=== PATIENT | female | born 1995 | race Two or more races ===

== ENCOUNTER 2020-04-01 03:05 | Inpatient (IN) | payer OTHER, SELFPAY ==
[~2020-04-01] VITALS: Ht 165.1 cm; Wt 56.8 kg
[2020-04-01] MEDS ORDERED: diphenhydrAMINE 50MG/ML VIAL (J1200) As Ordered ONE (03:07)
[2020-04-01] MEDS ORDERED: HALOPERIDOL 5MG/ML VIAL (J1630 PER 1) As Ordered ONE ×2 (03:08→03:10)
[2020-04-01] MEDS ORDERED: HALOPERIDOL 5MG/ML VIAL (J1630 PER 1) IM STA (03:20)
[2020-04-01] MEDS ORDERED: diphenhydrAMINE 50MG/ML VIAL (J1200) IM STA (03:20)
[2020-04-01 03:34] LABS: HEMATOCRIT 41.3 % (36.0-47.0); HEMOGLOBIN 12.9 g/dl (12.0-15.5); MEAN CORPUSCULAR HEMOGLOBIN 25.3 pg (27.0-33.0); MEAN CORPUSCULAR HGB CONC 31.2 g/dl (32.0-36.5); PLATELET COUNT, AUTOMATED 340 10^3/uL (150-450); WHITE BLOOD COUNT 8.4 10^3/uL (4.0-10.0)
[2020-04-01] MEDS ORDERED: diphenhydrAMINE 50MG/ML VIAL (J1200) IM ONE (04:00)
[2020-04-01] MEDS ORDERED: HALOPERIDOL 5MG/ML VIAL (J1630 PER 1) IM ONE (04:00)
[2020-04-01 04:06] LABS: ALBUMIN 4.2 GM/DL (3.2-5.2); ALT/SGPT 24 U/L (12-78); BILIRUBIN,DIRECT < 0.1 MG/DL (0.0-0.2); BILIRUBIN,TOTAL 0.2 MG/DL (0.2-1.0); BLOOD UREA NITROGEN 11 MG/DL (7-18); CALCIUM LEVEL 8.3 MG/DL (8.5-10.1); CARBON DIOXIDE LEVEL 19 MEQ/L (21-32); CHLORIDE LEVEL 110 MEQ/L (98-107); ETHYL ALCOHOL (ETHANOL) 0.218 % (0.000-0.010); GLOMERULAR FILTRATION RATE > 60.0 (>60); GLUCOSE, FASTING 96 MG/DL (70-100); POTASSIUM SERUM 3.8 MEQ/L (3.5-5.1); SALICYLATE LEVEL < 1.7 MG/DL (5.0-30.0); SODIUM LEVEL 144 MEQ/L (136-145)
[2020-04-01 04:07] LABS: ACETAMINOPHEN LEVEL < 2.0 UG/ML (10.0-30.0)
[2020-04-01 04:28] LABS: CPK CREATINE PHOSPHOKINASE 342 U/L (26-192)
--- NOTE | 2020-04-01 04:30 | REPVR ---
PROCEDURE INFORMATION: Exam: CT Head Without Contrast Exam date and time: 04/01/2020 4:10 AM Age: 24 years old Clinical indication: Altered mental status/memory loss; Additional info: AMS TECHNIQUE: Imaging protocol: Computed tomography of the head without contrast. Radiation optimization: All CT scans at this facility use at least one of these dose optimization techniques: automated exposure control; mA and/or kV adjustment per patient size (includes targeted exams where dose is matched to clinical indication); or iterative reconstruction. COMPARISON: No relevant prior studies available. FINDINGS: Brain: Normal. No hemorrhage. Unremarkable white matter. No mass effect. Ventricles: Normal. No ventriculomegaly. Bones/joints: Unremarkable. No acute fracture. Sinuses: Visualized sinuses are unremarkable. No fluid levels. Mastoid air cells: Visualized mastoid air cells are well aerated. Soft tissues: Unremarkable. Other findings: The exam is degraded by patient motion artifact and suboptimal patient positioning. IMPRESSION: 1. Motion limited exam. 2. No acute intracranial abnormality. Electronically signed by: Israel Loera On 04/01/2020 04:30:09 AM
[2020-04-01 05:17] LABS: AMPHETAMINES LEVEL URINE NEGATIVE (NEGATIVE); BARBITURATES URINE NEGATIVE (NEGATIVE); BENZODIAZEPINES URINE NEGATIVE (NEGATIVE); CANNABINOIDS URINE POSITIVE (NEGATIVE); COCAINE METABOLITE URINE NEGATIVE (NEGATIVE); METHADONE URINE NEGATIVE (NEGATIVE); OPIATES URINE NEGATIVE (NEGATIVE); PHENCYCLIDINE URINE NEGATIVE (NEGATIVE)
[2020-04-01] MEDS ORDERED: METAL LOCK LOOP XX ONE (05:54)
[2020-04-01 16:49] LABS: ETHYL ALCOHOL (ETHANOL) < 0.003 % (0.000-0.010)
[2020-04-01 16:51] LABS: HCG, SERUM QUALITATIVE NEGATIVE (NEGATIVE)
--- NOTE | 2020-04-01 19:21 | ECGEPIP ---
[facility] - ED Test Date: 2020-04-01 Pat Name: ARMANDO GIFFORD Department: Room: - Gender: Female Life Manager: ADOLPH : 1995 Requested By: BUNNY Prasad Order Number: [id number] Reading MD: Randal Dimas Measurements Intervals Gove Rate: 75 P: 31 CA: 141 QRS: 66 QRSD: 78 T: 66 QT: 396 QTc: 443 Interpretive Statements SINUS RHYTHM WITH SINUS ARRHYTHMIA BENIGN EARLY REPOLARIZATION NO PRIORS FOR COMPARISON Electronically Signed on 04-01-2020 19:20:41 EDT by Randal Dimas
[2020-04-02] MEDS: FOLIC ACID 1 MG TAB PO SCH ×2 (09:00→18:32)
[2020-04-02] MEDS: MULTIVITAMINS/MINERALS THERAP 1 TAB PO SCH ×2 (09:00→18:32)
[2020-04-02] MEDS ORDERED: LORazepam 1 MG TAB PO STA (11:39)
[2020-04-02] MEDS ORDERED: OLANZapine ORAL DISINTEGRATING TAB 5MG PO ONE (11:45)
[2020-04-02] MEDS ORDERED: ACETAMINOPHEN TAB 650MG DOSE (2X325MG) PO PRN (13:15)
[2020-04-02] MEDS ORDERED: LORazepam 2 MG TAB PO PRN (13:15)
[2020-04-02] MEDS ORDERED: MOM 30ML SUSPENSION UDC PO PRN (13:15)
[2020-04-02] MEDS ORDERED: MAALOX 30 ML SUSP *UDC PO PRN (13:15)
[2020-04-02] MEDS: OLANZapine ORAL DISINTEGRATING TAB 5MG PO PRN (18:51)
[2020-04-02] MEDS: THIAMINE 100 MG TAB PO SCH (21:18)
[2020-04-02] MEDS: PALIPERIDONE 3 MG ER TAB (INVEGA) PO SCH (21:18)
[2020-04-02] MEDS: traZODone 50 MG TAB PO PRN (21:18)
[2020-04-03] MEDS: OLANZapine ORAL DISINTEGRATING TAB 5MG PO PRN ×2 (02:28→17:38)
[2020-04-03 06:26] VITALS: BP 134/64
[2020-04-03 06:27] VITALS: BP 134/64
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
[2020-04-03] MEDS: THIAMINE 100 MG TAB PO SCH ×2 (09:36→19:54)
[2020-04-03] MEDS: MULTIVITAMINS/MINERALS THERAP 1 TAB PO SCH (09:36)
[2020-04-03] MEDS: FOLIC ACID 1 MG TAB PO SCH (09:36)
--- NOTE | 2020-04-03 15:15 | HPE ---
DATE OF ADMISSION: 04/02/2020 CHIEF COMPLAINT: Right wrist pain. HISTORY OF PRESENTING ILLNESS: This is a 24-year-old female with no past medical history, brought in due to psychotic episode, admitted in the inpatient mental health unit for adjustment of medications. Patient was handcuffed yesterday, was brought into the emergency room, and subsequently admitted to the inpatient mental health unit. She complains of pain at the right snuff box and says that she is having difficulty with decreased sensation and feels numb. Patient, otherwise, has no change in qa analyst, able to perform activities of daily living (ADLs) without difficulty. She is able to flex/extend all of the fingers, flexion/extension of the wrist. There is no swelling, redness, or tenderness around the area. She has remained afebrile. No other complaints overnight. Patient denies fever, chills, flank pain, dysuria, urgency, or frequency. PAST MEDICAL HISTORY: None. PAST SURGICAL HISTORY: None. ALLERGIES: No known drug allergies. HOME MEDICATIONS: None. HOSPITAL MEDICATIONS: - acetaminophen 650 mg every 6 as needed - Mylanta 30 mL every 4 as needed - folic acid 1 mg daily - Haldol as needed - Ativan 2 mg as needed - milk of magnesia 30 daily as needed - multivitamin one tablet daily - olanzapine 5 mg every 6 hourly as needed - Invega 3 mg nightly - thiamine 100 mg twice a day - trazodone 50 mg nightly as needed for insomnia SOCIAL HISTORY: Patient says she used to smoke cigarettes, about three cigarettes, quit 3-1/2 years ago. Drinks alcohol, usually every weekend, but now has quit, only has small drinks. Patient works for [employer] in [employer]. FAMILY HISTORY: Mother alive in her 50s with unknown medical problems. Father is 51, unknown medical problems. REVIEW OF SYSTEMS: Per history of present illness, 12-point system otherwise negative. PHYSICAL EXAMINATION: Temperature 99.1, pulse 58, respiratory 12, blood pressure 134/64, 98% on room air. Generally, patient is awake, alert, oriented to person, place, and time. Anicteric. No jaundice. No cervical lymphadenopathy or thyromegaly. Lungs are clear to auscultation. No wheezing, rales, or rhonchi. Heart: S1, S2, sinus rhythm. Abdomen is soft, nontender, nondistended. Positive bowel sounds. Extremities: No cyanosis, clubbing, pitting edema. Right wrist: Full range of motion with flexion/extension. There is no erythema. Some tenderness around the right anatomical snuff box, otherwise, motor function is intact. No changes in sensation. Both radial and ulnar pulses are intact. LABORATORY DATA: White count 8.4, hemoglobin 12, hematocrit 41, platelet count 340. Sodium 144, potassium 3.8, chloride 110, bicarbonate 19, BUN 11, creatinine 1.1, glucose of 96, calcium 8.3, T-bilirubin 0.2, direct bilirubin less than 0.1, AST 26, ALT 24, alkaline phosphatase 71, total CK 342, total protein 8, albumin 4.2, TSH 1.52, negative hCG. Urine culture is pending. Urinalysis 1+ protein, 1+ ketone, positive nitrite, negative leukocyte esterase, 1 WBC, 2+ bacteria. Urine toxicology screen positive for cannabinoids. Salicylates less than 1.7. Acetaminophen less than 2. Ethyl alcohol 0.218. ASSESSMENT AND PLAN: This is a 24-year-old with no past medical history, brought in by police after they were called by her friends who reported bizarre and overactive behavior, friends deny any drinking and drug use, patient speaking clearly but illogically and was combative with police, screaming on arrival. Patient is usually on psychiatric medications, but has not been taking them since [facility]. She was brought in by police on a 9.41. She was recently discharged from a mental health facility in [place], came to the area to visit her friends. When they got back to the [facility], patient was very bizarre and agitated with multiple statements about killing herself and killing others. Per police, patient may have been in the at some point. She was brought in by [place] police with active psychosis, yelling and threatening and a danger to herself and others. She appeared bizarre and disheveled and was admitted to the inpatient mental health unit. IMPRESSION: 1. Psychosis and bizarre behavior. Psychiatrist, Dr. Mcpherson, is managing her acute issues. [facility]. 2. Right wrist pain. Patient has no acute medical or surgical needs at this time. I would recommend sending her to a hand specialist and a neurologist to rule out carpal tunnel with EMG nerve conduction studies. Had she not been suicidal or homicidal, I would have recommended a splint, but since she is having homicidal and suicidal thoughts, a splint would be a dangerous object for her to use in trying to harm others and herself. Continue with Tylenol for pain control. Deep venous thrombosis (DVT) prophylaxis with encouragement of ambulation. ZEV
[2020-04-03] MEDS: PALIPERIDONE 3 MG ER TAB (INVEGA) PO SCH (19:54)
[2020-04-03] MEDS: traZODone 50 MG TAB PO PRN (21:02)
[2020-04-04 06:24] VITALS: BP 142/67
[2020-04-04] MEDS ORDERED: AUGMENTIN 875 MG TAB PO SCH (09:00)
--- NOTE | 2020-04-04 09:12 | MHDSPDOC ---
[facility] Discharge Summary Discharge Summary DATE OF ADMISSION: Apr 02, 2020 at 13:11 DATE OF DISCHARGE: DISCHARGE DIAGNOSES: 1. . 2. . REASON FOR ADMISSION: CONSULTANTS INVOLVED: TREATMENT AND PROGRESS ON THE UNIT : . HOSPITAL COURSE: DISCHARGE ASSESSMENT: MENTAL STATUS EXAMINATION ON DISCHARGE: Patient is a -year old female, who is . Speech is . Language skills are . Thought processes including: . Thought content: . Abstract reasoning, and computation: . Description of associations: . Description of abnormal or psychotic thoughts: . Judgment: . Insight: . Orientation to . Recent and remote memory: . Attention span and concentration: . Language: . Fund of knowledge: . Mood: . Affect: . MEDICATIONS ON DISCHARGE: - for . - for . - for . PLAN/FOLLOWUP ARRANGEMENTS: . The amount of time spent in the coordination of care for this patient was approximately minutes. Vital Signs/I&Os Vital Signs Date Time Temp Pulse Resp B/P (MAP) Pulse Ox O2 Delivery O2 Flow Rate FiO2 04/04/20 06:24 97.4 112 18 142/67 (92) Room Air 04/02/20 14:16 98 Laboratory Data Microbiology Microbiology 04/01/20 Urine Culture - Preliminary, Resulted Escherichia Coli Medications No Active Prescriptions or Reported Meds Allergies Coded Allergies: No Known Allergies (Unverified , 04/01/20) ZI SINGH DO Apr 04, 2020 09:12
[2020-04-04] MEDS: OLANZapine ORAL DISINTEGRATING TAB 5MG PO PRN (09:38)
[2020-04-04] MEDS: FOLIC ACID 1 MG TAB PO SCH (09:38)
[2020-04-04] MEDS: THIAMINE 100 MG TAB PO SCH (09:38)
[2020-04-04] MEDS: MULTIVITAMINS/MINERALS THERAP 1 TAB PO SCH (09:38)
[2020-04-04] MEDS ORDERED: diphenhydrAMINE 50MG CAP PO ONE (11:00)
[2020-04-04] MEDS ORDERED: haloperidoL 5 MG TAB PO ONE (11:00)
== END 2020-04-04 12:45 | disposition short-term general hospital (02) | DRG 885 ==
LOC: M ED 03:05 → M ED INP 04-02 13:11 → M PSY 04-02 14:34
PROVIDERS: ADMIT Psychiatry & Neurology Psychiatry; ATTEND Psychiatry & Neurology Addiction Medicine
DX: F29 Unspecified psychosis not due to a substance or known physiological condition (principal); F43.12 Post-traumatic stress disorder, chronic; Z79.899 Other long term (current) drug therapy; Z87.891 Personal history of nicotine dependence

== ENCOUNTER 2020-04-12 12:45 | Inpatient (IN) | payer OTHER ==
[2020-04-12] MEDS ORDERED: OLANZapine INTRAMUSCULAR 10MG VIAL As Ordered ONE (13:13)
[2020-04-13] MEDS ORDERED: LORazepam 2 MG/ML VIAL ONE ×2 (11:28→19:40)
[2020-04-13] MEDS ORDERED: diphenhydrAMINE 50MG/ML VIAL (J1200) ONE ×2 (11:28→19:40)
[2020-04-13] MEDS ORDERED: diphenhydrAMINE 50MG/ML VIAL (J1200) As Ordered ONE ×2 (11:28→19:41)
[2020-04-13] MEDS ORDERED: HALOPERIDOL 5MG/ML VIAL (J1630 PER 1) As Ordered ONE ×2 (11:28→19:40)
[2020-04-13] MEDS ORDERED: HALOPERIDOL 5MG/ML VIAL (J1630 PER 1) ONE ×2 (11:28→19:40)
[2020-04-13] MEDS ORDERED: LORazepam 2 MG/ML VIAL As Ordered ONE ×2 (11:29→19:42)
[2020-04-14] MEDS ORDERED: LORazepam 2 MG/ML VIAL ONE ×2 (09:01→16:25)
[2020-04-14] MEDS ORDERED: diphenhydrAMINE 50MG/ML VIAL (J1200) As Ordered ONE ×2 (09:01→16:26)
[2020-04-14] MEDS ORDERED: HALOPERIDOL 5MG/ML VIAL (J1630 PER 1) As Ordered ONE ×2 (09:01→16:25)
[2020-04-14] MEDS ORDERED: diphenhydrAMINE 50MG/ML VIAL (J1200) ONE ×2 (09:01→16:25)
[2020-04-14] MEDS ORDERED: HALOPERIDOL 5MG/ML VIAL (J1630 PER 1) ONE ×2 (09:01→16:25)
[2020-04-14] MEDS ORDERED: LORazepam 2 MG/ML VIAL As Ordered ONE ×2 (09:03→16:27)
[2020-04-14] MEDS ORDERED: traZODone 50 MG TAB As Ordered ONE (21:08)
[2020-04-14] MEDS ORDERED: traZODone 50 MG TAB ONE (21:08)
[2020-04-15] MEDS ORDERED: diphenhydrAMINE 50MG CAP As Ordered ONE ×2 (08:49→18:37)
[2020-04-15] MEDS ORDERED: LORazepam 1 MG TAB ONE ×2 (08:49→18:36)
[2020-04-15] MEDS ORDERED: LORazepam 1 MG TAB As Ordered ONE ×2 (08:49→18:37)
[2020-04-15] MEDS ORDERED: diphenhydrAMINE 50MG CAP ONE ×2 (08:49→18:36)
[2020-04-16] MEDS ORDERED: diphenhydrAMINE 50MG CAP ONE ×2 (14:03→21:36)
[2020-04-16] MEDS ORDERED: haloperidoL 5 MG TAB As Ordered ONE (14:03)
[2020-04-16] MEDS ORDERED: haloperidoL 5 MG TAB ONE (14:03)
[2020-04-16] MEDS ORDERED: LORazepam 1 MG TAB ONE ×2 (14:03→21:36)
[2020-04-16] MEDS ORDERED: LORazepam 1 MG TAB As Ordered ONE ×2 (14:04→21:37)
[2020-04-16] MEDS ORDERED: diphenhydrAMINE 50MG CAP As Ordered ONE ×2 (14:04→21:36)
[2020-04-16] MEDS ORDERED: traZODone 50 MG TAB ONE (21:36)
[2020-04-16] MEDS ORDERED: traZODone 50 MG TAB As Ordered ONE (21:36)
[2020-04-17] MEDS ORDERED: LORazepam 1 MG TAB ONE (08:51)
[2020-04-17] MEDS ORDERED: diphenhydrAMINE 50MG CAP As Ordered ONE (08:51)
[2020-04-17] MEDS ORDERED: diphenhydrAMINE 50MG CAP ONE (08:51)
[2020-04-17] MEDS ORDERED: LORazepam 1 MG TAB As Ordered ONE (08:53)
[2020-04-17] MEDS ORDERED: traZODone 50 MG TAB ONE (22:48)
[2020-04-17] MEDS ORDERED: traZODone 50 MG TAB As Ordered ONE (22:48)
[2020-04-18] MEDS ORDERED: diphenhydrAMINE 50MG CAP ONE (17:26)
[2020-04-18] MEDS ORDERED: diphenhydrAMINE 50MG CAP As Ordered ONE (17:26)
[2020-04-18] MEDS ORDERED: ACETAMINOPHEN TAB 650MG DOSE (2X325MG) ONE (17:26)
[2020-04-18] MEDS ORDERED: ACETAMINOPHEN TAB 650MG DOSE (2X325MG) As Ordered ONE (17:27)
[2020-04-18] MEDS ORDERED: HALOPERIDOL DECANOATE 100 MG/ML VIAL (J1631) ONE (18:36)
[2020-04-18] MEDS ORDERED: HALOPERIDOL DECANOATE 100 MG/ML VIAL (J1631) As Ordered ONE (18:36)
[2020-04-18] MEDS ORDERED: traZODone 50 MG TAB ONE (22:09)
[2020-04-18] MEDS ORDERED: traZODone 50 MG TAB As Ordered ONE (22:09)
[2020-05-20 14:19] LABS: BASO # 0.1 10^3/uL (0.0-0.2); BASO % 1.1 % (0.0-1.0); EOS % 0.3 % (0.0-3.0); HEMATOCRIT 40.9 % (36.0-47.0); HEMOGLOBIN 12.9 g/dl (12.0-15.5); LYMPH # 1.6 10^3/uL (1.5-5.0); LYMPH % 21.9 % (24.0-44.0); MEAN CORPUSCULAR HEMOGLOBIN 25.7 pg (27.0-33.0); MEAN CORPUSCULAR HGB CONC 31.5 g/dl (32.0-36.5); MEAN CORPUSCULAR VOLUME 81.5 fl (80.0-96.0); MONO # 0.7 10^3/uL (0.0-0.8); MONO % 10.2 % (0.0-5.0); NEUTROPHILS # 4.8 10^3/uL (1.5-8.5); NEUTROPHILS % 66.2 % (36.0-66.0); PLATELET COUNT, AUTOMATED 223 10^3/uL (150-450); RED BLOOD COUNT 5.02 10^6/uL (4.00-5.40); WHITE BLOOD COUNT 7.3 10^3/uL (4.0-10.0)
[2020-05-24 11:13] LABS: ACETAMINOPHEN LEVEL < 2.0 UG/ML (10.0-30.0); ALBUMIN 4.2 GM/DL (3.2-5.2); ALT/SGPT 22 U/L (12-78); AMPHETAMINES LEVEL URINE NEGATIVE (NEGATIVE); BARBITURATES URINE NEGATIVE (NEGATIVE); BENZODIAZEPINES URINE NEGATIVE (NEGATIVE); BILIRUBIN,DIRECT 0.2 MG/DL (0.0-0.2); BILIRUBIN,TOTAL 0.5 MG/DL (0.2-1.0); BLOOD UREA NITROGEN 12 MG/DL (7-18); CALCIUM LEVEL 9.6 MG/DL (8.5-10.1); CANNABINOIDS URINE POSITIVE (NEGATIVE); CARBON DIOXIDE LEVEL 30 MEQ/L (21-32); CHLORIDE LEVEL 103 MEQ/L (98-107); COCAINE METABOLITE URINE NEGATIVE (NEGATIVE); CREATININE FOR GFR 0.77 MG/DL (0.55-1.30); ETHYL ALCOHOL (ETHANOL) < 0.003 % (0.000-0.010); GLOMERULAR FILTRATION RATE > 60.0 (>60); GLUCOSE, FASTING 89 MG/DL (70-100); METHADONE URINE NEGATIVE (NEGATIVE); OPIATES URINE NEGATIVE (NEGATIVE); PHENCYCLIDINE URINE NEGATIVE (NEGATIVE); POTASSIUM SERUM 3.8 MEQ/L (3.5-5.1); SALICYLATE LEVEL < 1.7 MG/DL (5.0-30.0); SODIUM LEVEL 139 MEQ/L (136-145); TOTAL PROTEIN 7.9 GM/DL (6.4-8.2)
[2020-05-24 11:19] LABS: HCG, SERUM QUALITATIVE NEGATIVE (NEGATIVE)
--- NOTE | 2020-05-24 15:53 | MHIPN ---
DATE: 04/14/2020 The entire computer system is down in the hospital. The patient today became agitated pretty early today and we had to do both physical and chemical restraints, treating her with Haldol 10 mg, Ativan 2 mg, and Benadryl 50 mg intramuscular (IM). When I went to see the patient, she was fast asleep and I did not feel it was appropriate to try to wake her up. MENTAL STATUS EXAMINATION: Unable to complete. DIAGNOSIS: Other specified psychotic disorder. TREATMENT PLAN: At this point, the plan will be to titrate her medications as indicated and, of course, we will continue to try to keep her safe. She appears to be very psychotic. ZEV
--- NOTE | 2020-05-24 16:00 | MHPR ---
[facility] PROGRESS NOTE POST-RESTRAINT DICTATION DATE: 04/14/2020 OUTCOME OF THE RESTRAINT: The outcome of the restraint was a good outcome. EFFECTIVENESS OF THE RESTRAINT: The patient was restrained with both mechanical and chemical restraints. She was given Haldol 10 mg, Ativan 2 mg, and Benadryl 50 mg intramuscular (IM) and the patient eventually was able to calm down and was able to come off of the restraints. EVIDENCE OF ANY AFFECTED EMOTIONS IN THIS PATIENT: When I went to see the patient for this evaluation, the patient had just been agitated and had again been given chemical restraints of Haldol 10 mg, Benadryl 50 mg, and Ativan 2 mg, and was in physical restraints, but fell asleep shortly after and she was already out of restraints. That was this morning that that happened. So, when I went to see the patient, I really could not evaluate her as she was fast asleep and I thought it was contraindicated to try to wake her up again. So, just to clarify, the patient was on physical and chemical restraints yesterday. This morning, when I went to do my post-restraint evaluation from yesterdays restraints, she had already been aggressive again and had to be both chemically and physically restrained and was fast asleep. CHANGES TO THE TREATMENT PLAN: At this point, I have no further recommendations. ENRIQUED
--- NOTE | 2020-05-24 16:05 | MHIPN ---
DATE OF SERVICE: 04/15/2020 I want to clarify that the entire internet system in the hospital has been down now for some days. The patient today tells me that she is feeling mad because she feels that she called the police because she needed to have a physical checkup, she wanted somebody to check on her heart, to check her blood work and stuff, and instead she was brought to the hospital and admitted. I asked her about the things she had been voicing about Hung, and she very angrily stated those are all just part of my presybeterian beliefs. The patient has been continuously agitated and has had to be coded numerous times and given multiple medications intramuscular (IM) because she has not been cooperative and also put in chemical restraint. So, today, is actually the first time that I am actually meeting this patient. I was not the doctor that did her admission, but because I have been educational psychologist the weekend, I have been involved with the multiple codes with this patient, but again when I came to see her yesterday, for example, she was asleep, and so today is the first day that I am able to talk to her. MENTAL STATUS EXAMINATION: The patient is alert and oriented times three. Eye contact is fair. Psychomotor activity is decreased. She responds with short word sentences that appear to be appropriate. There is no formal thought disorder noted. Her mood is angry. Affect is labile. She has psychotic delusions. I did not elicit any suicidal or homicidal thoughts from this patient. However, I do not know how reliable she is, as when she first was admitted she was talking about the fact that she was going to slit her throat. 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 TREATMENT PLAN: We will continue to monitor her for continued psychotic symptoms and aggressive behavior and treat her as indicated. ZEV
--- NOTE | 2020-05-24 16:10 | MHPR ---
DATE: 04/15/2020 POST-RESTRAINT NOTE The patient was very psychotic and agitated yesterday and she was given both physical restraints and chemical restraints of Haldol 10 mg, Ativan 2 mg, Benadryl 50 mg. I also want to clarify that the entire internet and computer system for the hospital is down. OUTCOME OF THE RESTRAINT: The outcome was good as the patient responded to the medication and was no longer agitated. EFFECTIVENESS OF THE RESTRAINT: The patient, as I said, had both mechanical and chemical restraints, and they were successful in keeping her safe. EVIDENCE THAT THE PATIENT WAS AFFECTED EMOTIONALLY: There was no evidence that the patient was affected emotionally with the restraint. CHANGES TO TREATMENT PLAN: There are no changes at this time. MTDD
--- NOTE | 2020-07-12 20:39 | MHDSPDOC ---
[facility] Discharge Summary Discharge Summary DATE OF ADMISSION: Apr 12, 2020 at 19:30 DATE OF DISCHARGE: Apr 19, 2020 at 13:15 DISCHARGE DIAGNOSES: Schizophrenia CONSULTANTS INVOLVED:[ None (basic hospitalist screening)] REASON FOR ADMISSION & TREATMENT AND PROGRESS ON THE UNIT : The patient was admitted to the inpatient mental health unit after being found bizarre, paranoid, and psychotic. She required multiple restraints throughout the first few days of her admission. She did well eventually trying to take Haldol every 6 hours 10 mg. She eventually agreed to scheduled Haldol 10 mg BID with positive affect. She improved well and her psychosis rapidly resolved. She was agreeable to a Haldol Decanoate 100 mg shot as it is five times her regular daily doses of 20 mg BID. She did quite well on this combination without any major problems and her psychosis resolved. She was able to be discharged. Sent patient home with script for Haldol 10 mg BID. Sent 14 tablets with 4 refills. Discussed patient to continue oral medications for the next 1-2 weeks before discontinuing and being purely on Haldol. Sent additional Haldol Decanoate shot prescription for patient to fill for next months dose. DISCHARGE ASSESSMENT[improved] Legal status considerations: The patient at the time of discharge did not meet criteria for involuntary admission/extension due to having a [normal] mental status exam, [fair] insight into the situation, They are engaged in the discharge process, as well as being friendly and amenable in behavioral control and havent been engaging in any observed concerning behavior or ideation recently. They decline voluntary extension/admission at this time and must be discharged in good joao, as Im unable to make a case for holding the patient against their will. They may have historical risk factors of admissions and other interactions with psychiatry however, those are not modifiable from a clinical perspective. The patient will need to be discharged in good joao. MENTAL STATUS EXAMINATION ON DISCHARGE: [General: Well dressed with good hygiene Speech: Spontaneous and fluid Thought processes: Linear and logical Thought content: Future orientated Abstract reasoning, and computation: Intact Description of associations: Intact Description of abnormal or psychotic thoughts:Denies any suicidal or homicidal ideation. Denies any auditory or visual hallucinations. Does not appear to be responding to internal stimuli. Does not appear to be endorsing any bizarre or paranoid ideation. Judgment: fair Insight: fair Orientation: Alert and orientated 3 Recent and remote memory: Intact Attention span and concentration: Intact Fund of knowledge: Adequate Mood: "okay" Affect: Euthymic with a full range] PLAN/FOLLOWUP ARRANGEMENTS: Follow up appointments made (PCP and MH in 5 days of D/C date) and safety plan completed. Safety Planning aspects completed prior to discharge [Medication supplies limited to 7 days with 4 refills to prevent accumulation to OD] [RN reviewed crisis hotline information and other aspects to empower patient to access care in interim before next appointment.] The amount of time spent in the coordination of care for this patient was approximately 30 minutes. Medications No Active Prescriptions or Reported Meds Allergies Coded Allergies: No Known Allergies (Unverified , 04/01/20) ZI SINGH DO Jul 12, 2020 20:39
== END 2020-04-19 13:15 | disposition home or self-care (01) | DRG 885 ==
LOC: M ED 12:45 → M PSY 19:30
PROVIDERS: ADMIT Psychiatry & Neurology Addiction Medicine; ATTEND Psychiatry & Neurology Addiction Medicine
DX: F20.0 Paranoid schizophrenia (principal)

== ENCOUNTER 2020-09-24 09:02 | Emergency (ER) | payer OTHER ==
[~2020-09-24] VITALS: Ht 165.1 cm; Wt 63.2 kg
[2020-09-24 09:02] VITALS: BP 122/65
[2020-09-24] MEDS ORDERED: ARIP1TAB6 PO (09:13)
[2020-09-24] MEDS ORDERED: TRAZ-186 PO (09:13)
== END 2020-09-24 09:55 | disposition home or self-care (01) ==
LOC: M ED 09:02
DX: J02.9 Acute pharyngitis, unspecified (principal); R05 Cough; F33.9 Major depressive disorder, recurrent, unspecified; F41.9 Anxiety disorder, unspecified; Z88.8 Allergy status to other drugs, medicaments and biological substances; Z77.098 Contact with and (suspected) exposure to other hazardous, chiefly nonmedicinal, chemicals
CPT/HCPCS: 99283; U0003